=== PATIENT | male | born 1980 | race Caucasian/White ===

== ENCOUNTER 2019-07-20 11:45 | Emergency (ER) | payer BC, MEDICAID ==
[~2019-07-20] VITALS: Ht 193 cm; Wt 83.9 kg
[2019-07-20 12:14] VITALS: BP 140/101
== END 2019-07-20 14:26 | disposition home or self-care (01) ==
LOC: ER 11:45
DX: G89.29 Other chronic pain (principal); M54.2 Cervicalgia; R51 Headache; F17.210 Nicotine dependence, cigarettes, uncomplicated; Z76.0 Encounter for issue of repeat prescription

== ENCOUNTER → 2019-09-08 | Emergency (ER) | payer MEDICAID, SELFPAY ==
[~2019-09-08] VITALS: Ht 193 cm; Wt 83.9 kg
[~2019-09-08] MED LIST: cefTRIAXone W LIDOCAINE 1 GM IM IM ONE
[2019-09-08 18:09] VITALS: BP 139/104
== END | disposition home or self-care (01) ==
LOC: ER 18:00
DX: J01.00 Acute maxillary sinusitis, unspecified (principal); R50.9 Fever, unspecified; F17.210 Nicotine dependence, cigarettes, uncomplicated; Z20.828 Contact with and (suspected) exposure to other viral communicable diseases
CPT/HCPCS: 71045; 87070; 87804; 87880; 99284; C9803; U0003; J0696

== ENCOUNTER 2020-06-30 06:45 | Emergency (ER) | payer MEDICAID, SELFPAY ==
[~2020-06-30] VITALS: Ht 193 cm; Wt 86.2 kg
[2020-06-30 07:00] VITALS: BP 156/79
== END 2020-06-30 08:01 | disposition home or self-care (01) ==
LOC: ER 06:45
DX: M54.2 Cervicalgia (principal); Z53.21 Procedure and treatment not carried out due to patient leaving prior to being seen by health care provider

== ENCOUNTER 2024-05-31 00:26 | Emergency (ER) | payer MEDICAID ==
[~2024-05-31] VITALS: Ht 190.5 cm; Wt 93.0 kg
[2024-05-31 01:27] LABS: INR 0.99 (0.9-1.15); Prothrombin Time 10.5 sec (9.3-11.8)
--- NOTE | 2024-05-31 01:36 | ED.PDOC ---
History of Present Illness HPI Comments 43-year-old male who came to ER for chest pains. Patient denies any medical problems. 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 States since yesterday he has been having multiple complaints, including bilateral eye pain, and left-sided chest pains, sharp, tender to touch. Patient feels weak, fatigued and he states that he feels confused and disoriented at times. Noted also non pruritic rashes at his back and that his blood pressure has been elevated since yesterday. Upon arrival blood pressure was 152/107 mm Hg. Patient admits to drink a lot of caffeinated drinks and that he feels stress and over worked all thetime Chief Complaint: Chest Pain Time Seen by MD: 01:35 Primary Care Provider: NONE Reviewed Notes: Nurses Notes Allergies: Coded Allergies: NO KNOWN ALLERGIES (Unverified , 02/28/13) Home Meds No Active Prescriptions or Reported Meds Information Source: Patient Mode of Arrival: Ambulatory Severity: Moderate Timing: Hours Duration: Since onset Prehospital treatment: None Past Medical History PAST MEDICAL HISTORY: Denies Surgical History: Denies all surgeries Family History Family History: Reviewed,noncontributory to illness Social History Smoker: Cigarettes, Less Than 1 Pack/Day Alcohol: Denies ETOH Use Drugs: Denies Drug Use Lives In: Home Constitutional: reports: weakness; denies: chills, diaphoresis, fatigue, fever, malaise, sweats, others EENTM: reports: eye pain; denies: blurred vision, double vision, ear bleeding, ear discharge, ear drainage, ear pain, ear ringing, eye redness, hearing loss, mouth pain, mouth swelling, nasal discharge, nose bleeding, nose congestion, nose pain, photophobia, tearing, throat pain, throat swelling, voice changes, others Respiratory: denies: cough, hemoptysis, orthopnea, SOB at rest, shortness of breath, SOB with excertion, stridor, wheezing, others Cardiovascular: reports: chest pain; denies: dizzy spells, diaphoresis, Dyspnea on exertion, edema, irregular heart beat, left arm pain, lightheadedness, palpitations, PND, syncope, others Gastrointestinal: denies: abdomen distended, abdominal pain, blood streaked bowels, constipated, diarrhea, dysphagia, difficulty swallowing, hematemesis, melena, nausea, poor appetite, poor fluid intake, rectal bleeding, rectal pain, vomiting, others Genitourinary: denies: burning, dysuria, flank pain, frequency, hematuria, incontinence, penile discharge, penile sore, pain, testicle pain, testicle swelling, urgency, others Neurological: denies: dizziness, fainting, headache, left sided numbness, left sided weakness, numbness, paresthesia, pre-existing deficit, right sided numbness, right sided weakness, seizure, speech problems, tingling, tremors, weakness, others Musculoskeletal: denies: back pain, gout, joint pain, joint swelling, muscle pain, muscle stiffness, neck pain, others Integumetry: denies: bruises, change in color, change in hair/nails, dryness, laceration, lesions, lumps, rash, wounds, others Allergic/Immunocompromised: denies: Difficulty Healing, Frequent Infections, Hives, Itching, others Hematologic/Lymphatic: denies: anemia, blood clots, easy bleeding, easy bruising, swollen glands, others Endocrine: denies: excessive hunger, excessive sweating, excessive thirst, excessive urination, flushing, intolerance to cold, intolerance to heat, unexplained weight gain, unexplained weight loss, others Psychiatric: denies: anxiety, bipolar disorder, depression, hopeless, panic disorder, schizophrenia, sleepless, suicidal, others Physical Exam General Appearance: Moderate Distress, Normal HEENT: Normal ENT Inspection, Pharynx Normal, TMs Normal Neck: Full Range of Motion, Non-Tender, Normal, Normal Inspection Respiratory: Chest Non-Tender, Lungs Clear, No Accessory Muscle Use, No Respiratory Distress, Normal Breath Sounds Cardiovascular: No Edema, No JVD, No Murmur, No Gallop, Normal Peripheral Pulses, Regular Rate/Rhythm Breast Exam: Deferred Gastrointestinal: No Organomegaly, Non Tender, No Pulsatile Mass, Normal Bowel Sounds, Soft Genitalia: Deferred Pelvic: Deferred Rectal: Deferred Extremities: No calf tenderness, Normal capillary refill, Normal inspection, Normal range of motion, Non-tender, No pedal edema Musculoskeletal : Apperance: Normal Neurologic: Alert, textile conservator II-XII nml as Tested, No Motor Deficits, Normal Affect, Normal Mood, No Sensory Deficits Cerebellar Function: Normal Reflexes: Normal Skin: Dry, Normal Color, Warm Lymphatic: No Adenopathy Was a procedure done? Was a procedure done?: No EKG EKG : Pulse Rate (adult): 65 Cardiac Rhythm: NSR Differential Dx Considerations may include: Anemia, electrolyte imbalance, viral syndrome, weakness, anxiety X-Ray, Labs, Meds, VS Vital Signs Date Time Temp Pulse Resp B/P (MAP) Pulse Ox O2 Delivery O2 Flow Rate FiO2 05/31/24 03:08 62 18 139/94 05/31/24 03:06 97.8 62 16 139/94 (109) 98 97.8 05/31/24 03:06 62 16 98 Room Air 05/31/24 01:36 65 05/31/24 01:34 73 05/31/24 01:33 73 141/99 (113) 05/31/24 00:28 97.7 82 16 143/103 (116) 98 05/31/24 00:28 85 Lab Test 05/31/24 01:19 05/31/24 00:33 Range/Units Troponin I High Sensitivity < 3 L < 3 L </=54 ng/L White Blood Count 11.0 H 4.4-10.8 10^3/uL Red Blood Count 5.24 4.5-5.90 10^6/uL Hemoglobin 14.7 13.5-17.5 g/dL Hematocrit 44.1 41.0-53.0 % Mean Corpuscular Volume 84.1 80.0-100.0 fL Mean Corpuscular Hemoglobin 28.1 28.0-32.0 pg Mean Corpuscular Hemoglobin Concent 33.5 32.0-36.0 g/dL Red Cell Distribution Width 13.5 11.8-14.3 % Platelet Count 326 140-450 10^3/uL Mean Platelet Volume 9.8 6.9-10.8 fL Neutrophils (%) (Auto) 47.2 37.0-80.0 % Lymphocytes (%) (Auto) 36.4 10.0-50.0 % Monocytes (%) (Auto) 12.2 H 0.0-12.0 % Eosinophils (%) (Auto) 3.4 0.0-7.0 % Basophils (%) (Auto) 0.8 0.0-2.0 % Neutrophils # (Auto) 5.2 1.6-8.6 10 ^3/uL Lymphocytes # (Auto) 4.0 0.4-5.4 10 ^3/uL Monocytes # (Auto) 1.3 0-1.3 10 ^3/uL Eosinophils # (Auto) 0.4 0-0.8 10 ^3/uL Basophils # (Auto) 0.1 0-0.2 10 ^3/uL Nucleated Red Blood Cells 0.1 % Prothrombin Time 10.5 9.3-11.8 sec Prothrombin Time INR 0.99 0.9-1.15 Activated Partial Thromboplast Time 35.0 H 24.5-34.5 SEC Sodium Level 140 136-145 mmol/L Potassium Level 3.6 3.5-5.1 mmol/L Chloride Level 103 98-107 mmol/L Carbon Dioxide Level 29 20-31 mmol/L Anion Gap 8 5-15 Blood Urea Nitrogen 11 9-23 mg/dL Creatinine 1.01 0.700-1.30 mg/dL Glomerular Filtration Rate Calc 95 >90 mL/min BUN/Creatinine Ratio 10.9 10.0-20.0 Serum Glucose 120 H 74-106 mg/dL Calcium Level 10.1 8.7-10.4 mg/dL Magnesium Level 2.1 1.6-2.6 mg/dL Total Bilirubin 0.3 0.2-1.0 mg/dL Aspartate Amino Transferase (AST) 15 13-40 U/L Alanine Aminotransferase (ALT) 24 7-40 U/L Alkaline Phosphatase 69 46-116 U/L Total Protein 6.9 5.7-8.2 g/dL Albumin 4.5 3.2-4.8 g/dL Current Medications Medications (Trade) Dose Ordered Sig/Felicia Route Start Time Stop Time Status Last Admin Aspirin (Ecotrin Enteric Coated Tablet) 325 mg ONCE ONCE PO 05/31/24 00:45 05/31/24 00:46 IN 05/31/24 02:59 Morphine Sulfate 4 mg ONCE ONCE IV 05/31/24 00:45 05/31/24 00:46 IN 05/31/24 03:08 Enoxaparin Sodium (Lovenox) 100 mg ONCE ONCE SC 05/31/24 00:45 05/31/24 00:46 IN 05/31/24 03:00 Ondansetron HCl (Zofran) 4 mg ONCE ONCE IV 05/31/24 03:00 05/31/24 03:01 IN 05/31/24 03:08 CHEST RADIOGRAPH FINDINGS: Lines and Tubes: None Lungs: Clear Pleura: No effusion. No pneumothorax. Cardiomediastinal contours: Unremarkable Bones: Unremarkable IMPRESSION: 1. Clear lungs. Troponin x2 is three. EKG shows no signs of ischemia. CBC and CMP are normal. UDS is pending Patient will be discharged to follow up with primary care physician. Time of 1ST Reevaluation: 01:29 Reevaluation 1ST: Unchanged Patient Education/Counseling: Diagnosis, Treatment Family Education/Counseling: No Family Present Departure 1 Departure Time of Disposition: 03:44 Impression: Primary Impression: Chest pain Qualified Codes: R07.9 - Chest pain, unspecified Additional Impression: Anxiety Disposition: HOME / SELF CARE / HOMELESS Condition: Stable Additional Instructions: Reassessed patient, vital signs stable. Denies any new symptoms. Patient is able to tolerate PO and ambulate/be mobile at their baseline without concern. Risks and benefits of all medications given or prescribed, if any, discussed. All lab work, imaging and diagnostic studies were reviewed by me. The patient was counseled extensively on my clinical impression, diagnosis, expected course of the disease, and plan, including their follow-up care. Will discharge patient. Patient instructed to follow up with Primary Care Physician within 24-48 hours. Strict return precautions given for further exacerbation of symptoms or for new symptoms. The patient was given the opportunity to ask questions and all questions were answered by myself and the nursing/tech staff. Patient is in agreement with the care plan. The patient verbally expressed understanding of the discharge instructions, including the reasons to return to the Emergency Department. e-Prescriptions No Active Prescriptions or Reported Meds Discharged With: Self Critical Care Note Critical Care Time?: No Stability Stability form required: No Heart Score Heart Score: Heart Score Response (Comments) Value History N/A 0 EKG N/A 0 Age N/A 0 Risk Factors N/A 0 Troponin N/A 0 Total 0 I personally scribed for SANDI GAYLE MD ([email or web address]) on 05/31/24 at 01:36. Electronically submitted by Roberto Carlos Moore ([email or web address]). I personally scribed for SANDI GAYLE MD ([email or web address]) on 05/31/24 at 01:38. Electronically submitted by Roberto Carlos Moore ([email or web address]). I personally scribed for SANDI GAYLE MD ([email or web address]) on 05/31/24 at 02:10. Electronically submitted by Roberto Carlos Moore ([email or web address]). SANDI GAYLE MD May 31, 2024 01:36
--- NOTE | 2024-05-31 01:38 | DVH ---
CHEST RADIOGRAPH Indication: chest pain Technique: Single frontal view of the chest was obtained Comparison: CHEST PORTABLE on DOS: 09/08/19 FINDINGS: Lines and Tubes: None Lungs: Clear Pleura: No effusion. No pneumothorax. Cardiomediastinal contours: Unremarkable Bones: Unremarkable IMPRESSION: 1. Clear lungs.
[2024-05-31 01:39] LABS: Alanine Aminotransferase 24 U/L (7-40); Albumin 4.5 g/dL (3.2-4.8); Alkaline Phosphatase 69 U/L (46-116); Anion Gap 8 (5-15); Aspartate Aminotransferase 15 U/L (13-40); BUN/Creatinine Ratio 10.9 (10.0-20.0); Blood Urea Nitrogen 11 mg/dL (9-23); Calcium 10.1 mg/dL (8.7-10.4); Carbon Dioxide 29 mmol/L (20-31); Chloride 103 mmol/L (98-107); Magnesium 2.1 mg/dL (1.6-2.6); Potassium 3.6 mmol/L (3.5-5.1); Sodium 140 mmol/L (136-145); Total Protein 6.9 g/dL (5.7-8.2)
[2024-05-31 01:40] LABS: Bilirubin, Total 0.3 mg/dL (0.2-1.0); Glucose 120 mg/dL (74-106)
[2024-05-31] MEDS: ASPirin-EC 325mg tab PO ONE (02:59)
[2024-05-31] MEDS: ENOXAPARIN SOD 100 MG/1 ML SYRINGE SC ONE (03:00)
[2024-05-31] MEDS: MORPHINE SULFATE 4 MG/ML SYR/VIAL IV ONE ×2 (03:02→03:08)
[2024-05-31] MEDS: ONDANSETRON HCL 4 MG/2 ML VIAL ONE (03:03)
[2024-05-31 03:06] VITALS: TEMP 97.8; O2SAT 98
[2024-05-31] MEDS: ONDANSETRON HCL 4 MG/2 ML VIAL IV ONE (03:08)
[2024-05-31 03:26] LABS: Basophils # (auto) 0.1 10 ^3/uL (0-0.2); Basophils % (auto) 0.8 % (0.0-2.0); Eosinophils # (auto) 0.4 10 ^3/uL (0-0.8); Eosinophils % (auto) 3.4 % (0.0-7.0); Hematocrit 44.1 % (41.0-53.0); Hemoglobin 14.7 g/dL (13.5-17.5); Lymphocytes % (auto) 36.4 % (10.0-50.0); Mean Corpuscular Hemoglobin 28.1 pg (28.0-32.0); Mean Corpuscular Hgb Conc. 33.5 g/dL (32.0-36.0); Mean Corpuscular Volume 84.1 fL (80.0-100.0); Monocytes # (auto) 1.3 10 ^3/uL (0-1.3); Monocytes % (auto) 12.2 % (0.0-12.0); Neutrophils # (auto) 5.2 10 ^3/uL (1.6-8.6); Neutrophils % (auto) 47.2 % (37.0-80.0); Nucleated Red Blood Cells % 0.1 %; Platelet Count (auto) 326 10^3/uL (140-450); Red Blood Cells 5.24 10^6/uL (4.5-5.90); Red Cell Distribution Width 13.5 % (11.8-14.3)
[2024-05-31 03:32] VITALS: BP 131/87; PULSE 65; RESP 16
[2024-05-31] MEDS: LORazepam 0.5 MG TAB PO ONE (03:45)
--- NOTE | 2024-05-31 06:53 | ECG ---
[facility] Test Date: 2024-05-31 Test Time: 00:28:30 Pat Name: VINNY POE Department: ER Room: Gender: M Search Director: EKTA : 1980 Requested By: SANDI GAYLE Order Number: [id number] Reading MD: Gerson Caldwell Measurements Intervals [place] Rate: 85 P: 72 IN: 216 QRS: -88 QRSD: 105 T: 52 QT: 379 QTc: 451 Interpretive Statements Sinus rhythm Prolonged IN interval Incomplete RBBB and LAFB Abnormal R-wave progression, late transition Electronically Signed On 06-06-2024 9:49:58 PST by Gerson Caldwell Please click the below link to view image of tracing.
--- NOTE | 2024-05-31 06:53 | ECG ---
[facility] Test Date: 2024-05-31 Test Time: 01:34:12 Pat Name: VINNY POE Department: ER Room: Gender: M Digital Account Director: EKTA : 1980 Requested By: SANDI GAYLE Order Number: [id number] Reading MD: Gerson Caldwell Measurements Intervals [place] Rate: 73 P: 56 [place]: 216 QRS: -84 QRSD: 100 T: 60 QT: 386 QTc: 426 Interpretive Statements Sinus rhythm Prolonged [place] interval Incomplete RBBB and LAFB Abnormal R-wave progression, late transition Baseline wander in lead(s) V1,V5,V6 Electronically Signed On 06-06-2024 9:50:48 PST by Gerson Caldwell Please click the below link to view image of tracing.
== END 2024-05-31 04:23 | disposition home or self-care (01) ==
LOC: ER 00:26
DX: F41.9 Anxiety disorder, unspecified (principal); R07.89 Other chest pain; F17.210 Nicotine dependence, cigarettes, uncomplicated; R41.0 Disorientation, unspecified
CPT/HCPCS: 36415; 71045; 80053; 83735; 84484; 85025; 85610; 85730; 93005; 96372; 96374; 96375; 99285; J1650; J2270; J2405